=== PATIENT | female | born 1975 | race Caucasian/White ===

== ENCOUNTER → 2018-10-31 | Outpatient (CLI) | payer OTHER ==
--- NOTE | 2018-10-31 13:15 | Diagnostic Imaging Report ---
PROCEDURE: US Non-ob pelvis comp/trans. TECHNIQUE: Multiple realtime grayscale images were obtained of the pelvis in various projections endovaginally. Transabdominal imaging was also performed. INDICATION: Pelvic pain and irregular menses. The uterus measures 9.2 x 5.3 x 5.3 cm. Endometrium is 7 mm in thickness. No myometrial mass is detected. The right ovary measures 2.9 x 2.3 x 2.2 cm and the left ovary measures 3.6 x 2.6 x 2.5 cm. There is blood flow to the ovaries. No adnexal mass or free fluid is seen. IMPRESSION: Unremarkable pelvic ultrasound. Dictated by: Dictated on workstation # [id number]
== END ==
LOC: RAD 10:18
PROVIDERS: ATTEND Nurse Practitioner Family
DX: N92.1 Excessive and frequent menstruation with irregular cycle (principal); R10.2 Pelvic and perineal pain
CPT/HCPCS: 76830; 76856